=== PATIENT | female | born 2000 | race Caucasian/White ===

== ENCOUNTER 2020-04-18 23:43 | Emergency (ER) | payer OTHER ==
[~2020-04-18] VITALS: Ht 160 cm; Wt 54.9 kg
--- NOTE | 2020-04-19 00:20 | Emergency Department Note ---
History of Present Illnes History of Present Illness Chief Complaint: General Medicine Complaints History of Present Illness This is a 19 year old female Chief Complaint Comment 19 Y/O FEMALE PT AAOX3 PRESENTS TO ED WITH REPORT OF "FEELING ANXIOUS BECAUSE I WAS PLAYING VIDEO GAMES WITH PEOPLE I DON'T KNOW." PT REPORTS, "I HAE A HISTORY OF ANXIETY AND CUTTING MYSELF." PTS V/S/S; NAD NOTED. Endorses finger tingling bilaterally. 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 Historian: Patient Arrival Mode: Car Dietitian Research Required: No Onset (how long ago): minute(s) (30) Location: Fingers Quality: Tingling Radiation: Reports non-radiation Severity: moderate Onset quality: sudden Duration (how long): hour(s) (1) Timing of current episode: constant Progression: unchanged Chronicity: new Context: Denies recent illness Relieving factors: none Exacerbating factors: none Associated symptoms: Reports denies other symptoms Treatments prior to arrival: none Past Medical/Family History Physician Review I have reviewed the patient's past medical and family history. Any updates have been documented here. Past Medical History Recent Fever: No Clinical Suspicion of Infectio: No New/Unexplained Change in Ment: No Other Medical History: SOCIAL ANXIETY Past Surgical History: None Social History Physically hurt or threatened: No Review of Systems Review of Systems Constitutional: Reports no symptoms EENTM: Reports no symptoms Cardiovascular: Reports no symptoms Respiratory: Reports no symptoms Gastrointestinal: Reports no symptoms Genitourinary: Reports no symptoms Musculoskeletal: Reports no symptoms Integumentary: Reports no symptoms Neurological: Reports as per HPI, Reports tingling (fingers bilaterally) Psychological: Reports no symptoms, Reports anxiety Endocrine: Reports no symptoms Hematological/Lymphatic: Reports no symptoms Physical Exam Related Data Allergies: Coded Allergies: No Known Allergies (Unverified , 04/19/20) Triage Vital Signs Vital Signs Date Time Temp Pulse Resp B/P (MAP) Pulse Ox O2 Delivery O2 Flow Rate FiO2 04/18/20 23:48 98.1 102 18 141/78 100 Room Air Vital signs reviewed: Yes Physical Exam CONSTITUTIONAL Constitutional: Present well-developed, Present well-nourished, Present distressed; Absent ill appearing HENT HENT: Present normocephalic, Present atraumatic, Present oropharynx clear/moist, Present nose normal HENT L/R: Present left ext ear normal, Present right ext ear normal EYES Eyes: Reports PERRL, Reports conjunctivae normal NECK Neck: Present ROM normal PULMONARY Pulmonary: Present effort normal, Present breath sounds normal CARDIOVASCULAR Cardiovascular: Present regular rhythm, Present heart sounds normal, Present capillary refill normal, Present normal rate GASTROINTESTINAL Abdominal: Present soft, Present nontender, Present bowel sounds normal GENITOURINARY Genitourinary: Present exam deferred SKIN Skin: Present warm, Present dry MUSCULOSKELETAL Musculoskeletal: Present ROM normal NEUROLOGICAL Neurological: Present alert, Present oriented x 3, Present no gross motor or sensory deficits PSYCHOLOGICAL Psychological: Present mood/affect normal, Present judgement normal Procedures 12 Lead ECG Interpretation ECG Interpretation : Dietitian Research: Interpreted by ED physician Date: Apr 19, 2020 Rhythm: sinus tachycardia Rate: normal QRS axis: normal ST segments normal: Yes T waves normal: Yes Clinical Impression: non-specific ECG Assessment & Plan Medical Decision Making MDM 19-year-old female presents for anxiety, finger tingling, feelings of drug. She states she was playing video games with some friends on line and had 3 V8 energy drinks and started feeling anxious. She is brought to the emergency department by her mother. She denies any drug use. Examination shows a moderately distressed female who is tachycardic and tachypnic. Vital signs otherwise unremarkable. Initial differential includes anxiety versus substance abuse versus thyrotoxicosis. After a short time and dressed patient is able to be calmed down and her symptoms carmelo. Heart rate decreases and she feels much better. Workup including urine and urine drug screen are unremarkable. Diagnosis favors anxiety attack. Doubt emergent process at this time. I discussed results patient as well as expected disease time course and management. They will follow up with their primary care provider or return to the emergency department for new or worsening symptoms. Patient's appropriate for discharge. Part of this note was dictated with Harjeet and is subject to recognition errors. Reassessment Reassessment time: 00:19 Reassessment Well appearing, NAD Assessment & Plan Final Impression: (1) Anxiety attack Depart Disposition: HOME, SELF-CARE Last Vital Signs Date Time Temp Pulse Resp B/P (MAP) Pulse Ox O2 Delivery O2 Flow Rate FiO2 04/18/20 23:48 98.1 102 18 141/78 100 Room Air SUSY THOMPSON MD Apr 19, 2020 00:20
[2020-04-19 00:51] LABS: AMPHETAMINES SCREEN,URINE NEGATIVE (NEGATIVE); BENZODIAZEPINES SCREEN,URINE NEGATIVE (NEGATIVE); PHENCYCLIDINE SCREEN,URINE NEGATIVE (NEGATIVE)
== END 2020-04-19 01:30 | disposition home or self-care (01) ==
LOC: ER 04-19 00:05
DX: F41.9 Anxiety disorder, unspecified (principal)
CPT/HCPCS: 80307; 81025; 93005; 99283

== ENCOUNTER 2020-05-26 09:06 | Emergency (ER) | payer OTHER ==
[~2020-05-26] VITALS: Ht 160 cm; Wt 51.3 kg
[2020-05-26] MEDS ORDERED: SODIUM CHLORIDE 0.9% 1000ML 1,000 ML IV STA (09:23)
[2020-05-26] MEDS ORDERED: ONDANSETRON HCL INJ 2MG/ML 2ML 2 MG/ML VIAL IV NR (09:30)
[2020-05-26] MEDS ORDERED: KETOROLAC TROMETHAMINE 30 MG/ML VIAL IV NR (09:30)
[2020-05-26 09:38] LABS: BASOPHILS # (AUTO) 0.1 (0.0-0.1); BASOPHILS % 0.9 % (0.0-1.0); EOSINOPHILS # (AUTO) 0.1 (0.0-0.4); HEMATOCRIT 48.1 % (34.2-44.1); HEMOGLOBIN 15.8 g/dL (12.0-16.0); LYMPHOCYTES # (AUTO) 2.5 (1.0-3.2); LYMPHOCYTES % 31.5 % (18.0-39.1); MEAN CORPUSCULAR HEMOGLOBIN 29.3 pg (28-32); MEAN CORPUSCULAR HGB CONC 32.8 g/dL (31-35); MEAN CORPUSCULAR VOLUME 89.1 fL (81-99); MONOCYTES # (AUTO) 0.8 (0.2-0.8); MONOCYTES % 9.4 % (4.4-11.3); NEUTROPHILS # (AUTO) 4.5 (2.1-6.9); NEUTROPHILS % 56.7 % (38.7-80.0); PLATELET COUNT 303 x10e3/uL (140-360)
[2020-05-26 09:43] LABS: INR 1.04; PROTHROMBIN TIME 14.1 seconds (11.9-14.5)
[2020-05-26 09:44] LABS: PARTIAL THROMBOPLASTIN TIME 28.3 seconds (23.8-35.5)
[2020-05-26 09:44] LABS: CLARITY,URINE CLOUDY (CLEAR); COLOR,URINE YELLOW (YELLOW)
[2020-05-26 09:45] LABS: BILIRUBIN,URINE NEGATIVE (NEGATIVE); KETONES,URINE NEGATIVE (NEGATIVE); LEUKOCYTE ESTERASE ,URINE NEGATIVE (NEGATIVE); NITRITE,URINE NEGATIVE (NEGATIVE); PROTEIN,URINE DIPSTICK NEGATIVE (NEGATIVE); URINE UROBILINOGEN 0.2 mg/dL (0.2 - 1)
[2020-05-26 09:52] LABS: ALANINE AMINOTRANSFERASE 25 IU/L (0-55); ALBUMIN 4.9 g/dL (3.5-5.0); ALBUMIN/GLOBULIN RATIO 1.8 (0.8-2.0); ALKALINE PHOSPHATASE 61 IU/L (40-150); ANION GAP 15.5 mmol/L (8-16); BLOOD UREA NITROGEN 7 mg/dL (7-26); BUN/CREATININE RATIO 9 (6-25); CALCIUM 9.6 mg/dL (8.4-10.2); CARBON DIOXIDE 24 mmol/L (22-29); CHLORIDE 106 mmol/L (98-107); CREATININE, SERUM 0.77 mg/dL (0.57-1.11); EST GLOMERULAR FILTRATION RATE > 60 ML/MIN (60-); GLUCOSE 89 mg/dL (74-118); POTASSIUM 3.5 mmol/L (3.5-5.1); SODIUM 142 mmol/L (136-145)
[2020-05-26 09:53] LABS: BACTERIA,URINE MANY /HPF; EPITHELIAL CELLS,URINE MANY /LPF; MUCUS,URINE MANY (RARE); RBC,URINE 0-5 /HPF (0-5); WBC,URINE (MAN) 0-5 /HPF (0-5)
--- NOTE | 2020-05-26 11:02 | Emergency Department Note ---
History of Present Illnes History of Present Illness Chief Complaint: Abdominal Complaints History of Present Illness This is a 19 year old female pt c/o abdominal pain that started an hour ago, pt c/o tenderness to the right side of her abdomen, pt describes pain as sharp and pressure-like pain. Historian: Patient, Family Member Arrival Mode: Car Wedding Photographer Required: No Onset (how long ago): hour(s) Location: RLQ ABDOMEN Quality: PAIN Radiation: Reports non-radiation Severity: severe Onset quality: sudden Timing of current episode: constant Progression: waxing and waning Chronicity: new Context: Denies recent illness Relieving factors: none Exacerbating factors: none Associated symptoms: Reports nausea/vomiting (NAUSEA ONLY); Denies cough, Denies fever/chills, Denies shortness of breath Treatments prior to arrival: none Past Medical/Family History Physician Review I have reviewed the patient's past medical and family history. Any updates have been documented here. Past Medical History Recent Fever: No Clinical Suspicion of Infectio: No New/Unexplained Change in Ment: No Past Medical History: Hypothyroidism, GERD Other Medical History: SOCIAL ANXIETY Past Surgical History: None Social History Smoking Cessation: Never Smoker Counseling Performed: No Alcohol Use: None Any Illegal Drug Use: No TB Exposure/Symptoms: No Physically hurt or threatened: No Family History Family history of heart diseas: No Other Any Pre-Existing Lines (PICC,: No Review of Systems Review of Systems Constitutional: Reports no symptoms EENTM: Reports no symptoms Cardiovascular: Reports no symptoms Respiratory: Reports no symptoms Gastrointestinal: Reports as per HPI Genitourinary: Reports no symptoms Musculoskeletal: Reports no symptoms Integumentary: Reports no symptoms Neurological: Reports no symptoms Psychological: Reports no symptoms Endocrine: Reports no symptoms Hematological/Lymphatic: Reports no symptoms Physical Exam Related Data Allergies: Coded Allergies: No Known Allergies (Unverified , 04/19/20) Triage Vital Signs Vital Signs Date Time Temp Pulse Resp B/P (MAP) Pulse Ox O2 Delivery O2 Flow Rate FiO2 05/26/20 09:15 98.5 110 22 98/78 100 Room Air Vital signs reviewed: Yes Physical Exam CONSTITUTIONAL Constitutional: Present well-developed, Present well-nourished HENT HENT: Present normocephalic, Present atraumatic, Present oropharynx clear/moist, Present nose normal HENT L/R: Present left ext ear normal, Present right ext ear normal EYES Eyes: Reports PERRL, Reports conjunctivae normal NECK Neck: Present ROM normal PULMONARY Pulmonary: Present effort normal, Present breath sounds normal CARDIOVASCULAR Cardiovascular: Present regular rhythm, Present heart sounds normal, Present capillary refill normal, Present normal rate GASTROINTESTINAL Abdominal: Present soft, Present tender (MODERATE TENDERNESS RLQ WITHOUT R/G); Absent guarding, Absent rebound, Absent left CVA tenderness, Absent right CVA tenderness GENITOURINARY Genitourinary: Present exam deferred SKIN Skin: Present warm, Present dry MUSCULOSKELETAL Musculoskeletal: Present ROM normal NEUROLOGICAL Neurological: Present alert, Present oriented x 3, Present no gross motor or sensory deficits PSYCHOLOGICAL Psychological: Present mood/affect normal, Present judgement normal Results Laboratory Result Diagram: 05/26/2092205/26/20922 Laboratory Laboratory Tests Test 05/26/20 09:25 05/26/20 09:23 Urine Color Yellow (YELLOW) Urine Clarity Cloudy (CLEAR) Urine pH 6 (5 - 7) Urine Specific Cameron >=1.030 (1.010-1.025) Urine Protein Negative (NEGATIVE) Urine Glucose (UA) Negative (NEGATIVE) Urine Ketones Negative (NEGATIVE) Urine Blood Negative (NEGATIVE) Urine Nitrite Negative (NEGATIVE) Urine Bilirubin Negative (NEGATIVE) Urine Urobilinogen 0.2 mg/dL (0.2 - 1) Urine Leukocyte Esterase Negative (NEGATIVE) Urine RBC 0-5 /HPF (0-5) Urine WBC 0-5 /HPF (0-5) Urine Epithelial Cells Many /LPF (NONE) Urine Bacteria Many /HPF (NONE) Urine Mucus Many (RARE) White Blood Count 8.00 x10e3/uL (4.8-10.8) Red Blood Count 5.40 x10e6/uL (3.6-5.1) Hemoglobin 15.8 g/dL (12.0-16.0) Hematocrit 48.1 % (34.2-44.1) Mean Corpuscular Volume 89.1 fL (81-99) Mean Corpuscular Hemoglobin 29.3 pg (28-32) Mean Corpuscular Hemoglobin Concent 32.8 g/dL (31-35) Red Cell Distribution Width 12.0 % (11.7-14.4) Platelet Count 303 x10e3/uL (140-360) Neutrophils (%) (Auto) 56.7 % (38.7-80.0) Lymphocytes (%) (Auto) 31.5 % (18.0-39.1) Monocytes (%) (Auto) 9.4 % (4.4-11.3) Eosinophils (%) (Auto) 1.0 % (0.0-6.0) Basophils (%) (Auto) 0.9 % (0.0-1.0) Neutrophils # (Auto) 4.5 (2.1-6.9) Lymphocytes # (Auto) 2.5 (1.0-3.2) Monocytes # (Auto) 0.8 (0.2-0.8) Eosinophils # (Auto) 0.1 (0.0-0.4) Basophils # (Auto) 0.1 (0.0-0.1) Absolute Immature Granulocyte (auto 0.04 x10e3/uL (0-0.1) Prothrombin Time 14.1 seconds (11.9-14.5) Prothromb Time International Ratio 1.04 Activated Partial Thromboplast Time 28.3 seconds (23.8-35.5) Sodium Level 142 mmol/L (136-145) Potassium Level 3.5 mmol/L (3.5-5.1) Chloride Level 106 mmol/L (98-107) Carbon Dioxide Level 24 mmol/L (22-29) Anion Gap 15.5 mmol/L (8-16) Blood Urea Nitrogen 7 mg/dL (7-26) Creatinine 0.77 mg/dL (0.57-1.11) Estimat Glomerular Filtration Rate > 60 ML/MIN (60-) BUN/Creatinine Ratio 9 (6-25) Glucose Level 89 mg/dL (74-118) Calcium Level 9.6 mg/dL (8.4-10.2) Total Bilirubin 0.8 mg/dL (0.2-1.2) Aspartate Amino Transf (AST/SGOT) 21 IU/L (5-34) Alanine Aminotransferase (ALT/SGPT) 25 IU/L (0-55) Alkaline Phosphatase 61 IU/L (40-150) Total Protein 7.6 g/dL (6.5-8.1) Albumin 4.9 g/dL (3.5-5.0) Globulin 2.7 g/dL (2.3-3.5) Albumin/Globulin Ratio 1.8 (0.8-2.0) Human Chorionic Gonadotropin, Qual Negative (NEGATIVE) Lab results reviewed: Yes Imaging Imaging results reviewed: Yes Assessment & Plan Medical Decision Making MDM RLQ ABD PAIN - CBC, CHEM, UA, PREG, CT ABD/PELVIS - EVAL FOR APPENDICITIS, OVARIAN CYST, COLITIS, UTI, CONSTIPATION Reassessment Reassessment DC HOME, MIRALAX OTC DIRECTED, TYL/MOTRIN, F/U PCP THURSDAY, RTED SX'S WORSEN, INCREASED PAIN/FEVER/ETC Assessment & Plan Final Impression: (1) Abdominal pain Depart Disposition: HOME, SELF-CARE Last Vital Signs Date Time Temp Pulse Resp B/P (MAP) Pulse Ox O2 Delivery O2 Flow Rate FiO2 05/26/20 10:00 98.4 98 16 112/78 99 Room Air Medications in the ED Ondansetron HCl 4 mg ONCE IV Last administered on 05/26/20at 10:07; Admin Dose 4 MG; Start 05/26/20 at 09:30; Stop 05/26/20 at 10:59 Ketorolac Tromethamine 30 mg ONCE IV Last administered on 05/26/20at 10:07; Admin Dose 30 MG; Start 05/26/20 at 09:30; Stop 05/26/20 at 10:59 Sodium Chloride 1,000 ml @ 0 mls/hr Q0M STAT IV Last administered on 05/26/20at 10:07; Admin Dose 999 MLS/HR; Start 05/26/20 at 09:23; Stop 05/26/20 at 09:24 LAN ELLIS MD May 26, 2020 11:02
--- NOTE | 2020-05-26 11:53 | Diagnostic Imaging Report ---
EXAM: CT Abdomen and Pelvis WITH contrast INDICATION: ^RLQ ABD PAIN ^[id number] ^1030 COMPARISON: None. TECHNIQUE: Abdomen and pelvis were scanned utilizing a multidetector helical scanner from the lung base to the pubic symphysis after administration of IV contrast. Coronal and sagittal reformations were obtained. Routine protocol was performed. Scan was performed when during portal venous phase. IV CONTRAST: 100 mL of Isovue 370 ORAL CONTRAST: None COMPLICATIONS: None RADIATION DOSE: Total DLP: 192.36 mGy*cm Estimated effective dose: (DLP x 0.015 x size factor) mSv CTDIvol has been reviewed. It is below the limits set by the Radiation Protocol Committee (RPC). Dose modulation, iterative reconstruction, and/or weight based adjustment of the mA/kV was utilized to reduce the radiation dose to as low as reasonably achievable. FINDINGS: LINES and TUBES: None. LOWER THORAX: Lung bases are clear. Visualized portions of inferior mediastinum are unremarkable. HEPATOBILIARY: Liver is normal in size and attenuation. No focal hepatic lesions. No biliary ductal dilation. GALLBLADDER: No radio-opaque stones or sludge. No wall thickening. SPLEEN: No splenomegaly. PANCREAS: No focal masses or ductal dilatation. ADRENALS: No adrenal nodules KIDNEYS/URETERS: Kidneys enhance symmetrically. No hydronephrosis. Round hypoattenuating lesion within the interpolar region of the left kidney measures up to 1 cm, poorly evaluated given size however statistically likely represents renal cysts. No stones. GI TRACT: No abnormal distention, wall thickening, or evidence of bowel obstruction. Few areas of colonic wall thickening, may be related to suboptimal distention however cannot exclude colitis. Base of the appendix is normal in size and air-filled with no surrounding inflammatory changes however tip of the appendix is not definitively visualized, obscured by adjacent bowel and right adnexal tissue. PELVIC ORGANS/BLADDER: Uterus is unremarkable. Mildly prominent bilateral ovaries without discrete cystic or solid lesion, likely related to follicular pattern in menstruating female. LYMPH NODES: No lymphadenopathy. VESSELS: Unremarkable. PERITONEUM / RETROPERITONEUM: Trace free fluid in the dependent portions of the pelvis, may be reactive or physiologic. No free air. BONES: Unremarkable. SOFT TISSUES: Unremarkable. IMPRESSION: 1. Base of the appendix is normal in size and air-filled however tip of the appendix is obscured by adjacent bowel and right adnexal tissue. Accordingly, tip appendicitis cannot be excluded however no inflammatory changes surrounding visualized portions of appendix. 2. Few areas of colonic wall thickening, may be related to suboptimal distention versus colitis. 3. Mildly prominent bilateral ovaries without discrete cystic or solid lesion, likely related to follicular pattern in menstruating female. Signed by: Dr. Sukumar Khoury M.D. on 05/26/2020 11:49 AM
== END 2020-05-26 12:55 | disposition home or self-care (01) ==
LOC: ER 09:15
DX: R10.31 Right lower quadrant pain (principal); R11.0 Nausea; E03.9 Hypothyroidism, unspecified; K21.9 Gastro-esophageal reflux disease without esophagitis; F41.9 Anxiety disorder, unspecified
CPT/HCPCS: 36415; 74177; 80053; 81001; 84702; 85025; 85610; 85730; 87086; 99284; J1885; J2405; J7030